=== PATIENT | male | born 1975 | race Caucasian/White ===

== ENCOUNTER 2020-07-31 20:02 | Emergency (ER) | payer MEDICAID ==
[~2020-07-31] VITALS: Ht 170.2 cm; Wt 62.6 kg
[2020-07-31 20:20] VITALS: BP_SYST 169
--- NOTE | 2020-07-31 20:20 | NUR ---
Patient to ER bed 3 to gown for evaluation. Side rails up. Report given to FEBRUARY.
--- NOTE | 2020-07-31 20:25 | NUR ---
PT AAO AND AMBULATORY C/O LEFT GROIN PAIN FOR PAST 4 MONTHS THAT IS WORSENING TODAY. PT REPORTS THAT LEFT GROIN PAIN IS 10/10 AND RADIATES DOWN LEFT LEG MAKING IT DIFFICULT TO WALK.
--- NOTE | 2020-07-31 20:50 | NUR ---
ER at bedside examining patient with cerner analyst.
[2020-07-31 22:00] VITALS: BP_SYST 169
--- NOTE | 2020-07-31 22:00 | NUR ---
Patient given written and verbal discharge instructions and verbalizes understanding. ER MD discussed with patient the results and treatment provided. Patient in stable condition. ID arm band removed. Rx of [place] given. Patient educated on pain management and to follow up with PMD. Pain Scale 2/10. Opportunity for questions provided and answered. Medication side effect fact sheet provided.
== END 2020-07-31 22:00 | disposition home or self-care (01) ==
LOC: SED 20:02
DX: K40.90 Unilateral inguinal hernia, without obstruction or gangrene, not specified as recurrent (principal)
CPT/HCPCS: 99283